=== PATIENT | female | born 1970 | race Caucasian/White ===

== ENCOUNTER 2022-12-24 21:13 | Emergency (ER) | payer OTHER ==
[~2022-12-24] VITALS: Ht 165.1 cm; Wt 87.1 kg
--- NOTE | 2022-12-24 21:19 | NUR ---
ER IN TRIAGE ROOM examining patient.
[2022-12-24 21:24] VITALS: BP_SYST 165; PULSE 82; RESP 20; TEMP 97.5; O2SAT 98
--- NOTE | 2022-12-24 21:24 | NUR ---
Patient to [facility] for evaluation.
--- NOTE | 2022-12-24 21:24 | NUR ---
PT BIB FROM HOME, AMBULATED TO HALLWAY BED 1. PT A&Ox4, ABLE TO MAKE NEEDS KNOWN. PT C/O ALLERGIC REACTION S/P EATING SHRIMP. PT IS AWARE OF BEING ALLERGIC TO SHRIMP BUT STATES THE LAST ALLERGIC REACTION WAS 10 YEARS AGO. PT STATES DIFFICULTY BREATHING AND SWOLLEN TONGUE. PT STATES TAKING BENEDRYL 15 MINS PRIOR TO ED ARRIVAL. SAFETY PRECAUTIONS IN PLACE.
[2022-12-24] MEDS ORDERED: DIPHENHYDRAMINE INJ 50 MG/ML VIAL IVP ONE (21:30)
[2022-12-24] MEDS ORDERED: FAMOTIDINE PF 20 MG/2 ML VIAL IVP ONE (21:30)
[2022-12-24] MEDS ORDERED: methylPREDNISolone SOD SUCC/PF 62.5 MG/ML VIAL IVP ONE (21:30)
[2022-12-24] MEDS ORDERED: PRED20TA PO (23:23)
[2022-12-24] MEDS ORDERED: DIPH25CA83 PO (23:23)
[2022-12-24] MEDS ORDERED: EPIN0.3P3 IM (23:24)
[2022-12-24 23:36] VITALS: BP_SYST 163; PULSE 79; RESP 20; O2SAT 98
--- NOTE | 2022-12-24 23:36 | NUR ---
Patient given written and verbal discharge instructions and verbalizes understanding. ER DR PRESCOTT discussed with patient the results and treatment provided. Patient in stable condition. ID arm band removed. Rx of BENADRYL, EPIPEN, PREDNISONE given. Patient educated on pain management and to follow up with PMD. Pain Scale 0/10. Opportunity for questions provided and answered. Medication side effect fact sheet provided.
== END 2022-12-24 23:36 | disposition home or self-care (01) ==
LOC: SED 21:13
DX: T78.1XXA Other adverse food reactions, not elsewhere classified, initial encounter (principal); R21 Rash and other nonspecific skin eruption; R06.02 Shortness of breath; Z91.013 Allergy to seafood; Z79.899 Other long term (current) drug therapy; X58.XXXA Exposure to other specified factors, initial encounter
CPT/HCPCS: 99284; 96374; 96375; J1200; J3490; J2930